=== PATIENT | male | born 1970 | race Caucasian/White ===

== ENCOUNTER 2019-07-07 11:17 | Emergency (ER) | payer OTHER ==
[~2019-07-07] VITALS: Ht 162.6 cm; Wt 71.2 kg
[2019-07-07] MEDS ORDERED: ATORVASTATIN CA20 MG (11:26)
[2019-07-07] MEDS ORDERED: ALLEGRA ALLERG180 MG PO (11:51)
[2019-07-07] MEDS ORDERED: MAXITROL EYE DRO5 ML OP (11:51)
== END 2019-07-07 11:58 | disposition home or self-care (01) ==
LOC: ER 11:17
DX: H10.89 Other conjunctivitis (principal)

== ENCOUNTER 2019-09-13 04:46 | Emergency (ER) | payer OTHER ==
[~2019-09-13] VITALS: Ht 162.6 cm; Wt 71.7 kg
[~2019-09-13 04:46] MED LIST: ALLEGRA ALLERG180 MG PO; ATORVASTATIN CA20 MG; MAXITROL EYE DRO5 ML OP
[2019-09-13] MEDS ORDERED: CARAFATE1 GM (05:13)
== END 2019-09-13 10:40 | disposition home or self-care (01) ==
LOC: ER 04:46
DX: K29.60 Other gastritis without bleeding (principal); R10.13 Epigastric pain

== ENCOUNTER 2019-09-18 19:31 | Emergency (ER) | payer OTHER ==
[~2019-09-18] VITALS: Ht 162.6 cm; Wt 71.7 kg
[~2019-09-18 19:31] MED LIST changes: +CARAFATE1 GM
== END 2019-09-18 22:49 | disposition home or self-care (01) ==
LOC: ER 19:31
DX: K20.8 Other esophagitis (principal); R07.89 Other chest pain; K29.60 Other gastritis without bleeding

== ENCOUNTER 2020-01-27 08:46 | Emergency (ER) | payer OTHER ==
[~2020-01-27] VITALS: Ht 162.6 cm; Wt 71.2 kg
[2020-01-27] MEDS ORDERED: PREVACID30 MG PO (13:38)
[2020-01-27] MEDS ORDERED: PEPCID AC20 MG PO (13:38)
== END 2020-01-27 13:56 | disposition home or self-care (01) ==
LOC: ER 08:46
DX: K29.70 Gastritis, unspecified, without bleeding (principal); R00.2 Palpitations

== ENCOUNTER 2021-07-08 18:02 | Emergency (ER) | payer OTHER ==
[~2021-07-08] VITALS: Ht 162.6 cm; Wt 72.6 kg
[~2021-07-08 18:02] MED LIST changes: +PEPCID AC20 MG PO; +PREVACID30 MG PO
[2021-07-08] MEDS ORDERED: KETO10TA2 PO (19:51)
== END 2021-07-08 20:07 | disposition home or self-care (01) ==
LOC: ER 18:02
DX: R07.89 Other chest pain (principal); R53.81 Other malaise